=== PATIENT | female | born 1990 | race Caucasian/White ===

== ENCOUNTER 2017-11-19 16:22 | Inpatient (IN) | payer OTHER ==
[2017-11-19] MEDS ORDERED: XYLOCAINE 2% INFILTRATI ONE ×2 (18:20→21:42)
[2017-11-19] MEDS ORDERED: STADOL IV PRN (18:20)
[2017-11-19] MEDS ORDERED: ZOFRAN IV PRN (18:20)
[2017-11-19] MEDS ORDERED: BRETHINE IVP PRN (18:20)
[2017-11-19] MEDS ORDERED: MINERAL OIL PO PRN (18:20)
[2017-11-19] MEDS ORDERED: ePHEDrine SULFATE IV PRN (18:20)
[2017-11-19] MEDS ORDERED: BRETHINE SUB-Q PRN (18:20)
--- NOTE | 2017-11-19 18:42 | History and Physical Report ---
History of Present Illness Date of examination: 11/19/17 Date of admission: 11/19/17 17:33 Chief complaint: Intense Labor Pains History of present illness: Early entry to care, uncomplicated course at [facility] with several missed appointments. Past History Past Medical History: no pertinent history Past Surgical History: no surgical history Family/Genetic History: diabetes (mother, father, brother), heart disease (MGM) , hypertension (mother and father), cancer (stomach CA) Social history: no significant social history, - Obstetrical History Expected Date of Delivery: 11/27/17 Actual Gestation: 38 Week(s) 6 Day(s) : 4 Para: 1 Hx # Term Pregnancies: 2 Spontaneous Abortions: 2 Number of Living Children: 1 #1 Infant Gender: Male year: 2[age][birth year] Birthweight: 2.495 kg Method of Delivery: Vaginal Gestational age at delivery: 39 Complications: none Medications and Allergies Allergies Allergy/AdvReac Type Severity Reaction Status Date / Time No Known Allergies Allergy Unverified 04/20/16 01:14 Home Medications Medication Instructions Recorded Confirmed Last Taken Type No Known Home Medications [No 11/19/17 11/19/17 Unknown History Reported Home Medications] Active Meds: Active Medications Butorphanol Tartrate (Stadol) 2 mg IV Q2H PRN PRN Reason: Pain , Severe (7-10) Ephedrine Sulfate (Ephedrine Sulfate) 10 mg IV Q2M PRN PRN Reason: Hypotension Lactated Ringer's (Lactated Ringers) 1,000 mls @ 125 mls/hr IV DIRECT ARMIDA Oxytocin/Sodium Chloride (Pitocin/Ns 20 Unit/1000ml Drip) 20 units in 1,000 mls @ 125 mls/hr IV DIRECT ARMIDA Oxytocin/Sodium Chloride (Pitocin/Ns 30 Unit/500ml) 30 units in 500 mls @ 2 mls /hr IV TITR ARMIDA; Protocol Mineral Oil (Mineral Oil) 30 ml PO QHS PRN PRN Reason: Constipation Ondansetron HCl (Zofran) 4 mg IV Q8H PRN PRN Reason: Nausea And Vomiting Terbutaline Sulfate (Brethine) 0.25 mg SUB-Q ONCE PRN PRN Reason: Hyperstimulation/Hypertonicity Terbutaline Sulfate (Brethine) 0.25 mg IVP ONCE PRN PRN Reason: Hyperstimulation/Hypertonicity Review of Systems All systems: negative - Vital Signs Vital signs: Vital Signs Pulse BP 67 128/77 11/19/17 16:49 11/19/17 16:49 Temp Pulse Resp BP Pulse Ox 73 118/78 97 11/19/17 18:08 11/19/17 17:20 11/19/17 18:08 - Physical Exam Breasts: Positive: normal Cardiovascular: Regular rate Lungs: Positive: Clear to auscultation, Normal air movement Abdomen: Positive: normal appearance, soft, normal bowel sounds Genitourinary (Female): Positive: normal external genitalia, normal perenium Vagina: Positive: normal moisture Uterus: Positive: enlarged Anus/Rectum: Positive: normal perianal skin Extremities: Positive: normal - Obstetrical FHR: category 1 Uterine Contraction Monitor Mode: Internal Cervical Dilatation: 4 (Copious Amount of Brown, particulate Meconium stained fluids upon AROM at 1828) Cervical Effacement Percentage: 70 station: -2 Uterine Contraction Pattern: Irregular Uterine Tone Measurement Phase: Resting Uterine Contraction Intensity: Moderate Results All other labs normal. Assessment and Plan A: IUP @ 38 6/7 Weeks Category I Tracing Active Labor Meconium Stained Fluids GBS Negative P: Admit to L&D per Routine Orders Pitocin Augmentation AROM IUPC Placed
[2017-11-19] MEDS ORDERED: LACTATED RINGERS 1,000 ML IV SCH (19:00)
[2017-11-19] MEDS ORDERED: PITOCin/NS 30 UNIT/500ML 30 UNITS/500 ML BAG IV SCH (19:00)
[2017-11-19] MEDS ORDERED: PITOCin/NS 20 UNIT/1000ML DRIP 20 UNITS/1,000 ML BAG IV SCH (19:00)
[2017-11-19 19:19] LABS: Hematocrit 35.8 % (30.3-42.9); Hemoglobin 12.1 gm/dl (10.1-14.3); Mean Corpuscular HGB Conc 34 % (30-34); Mean Corpuscular Hemoglobin 32 pg (28-32); Mean Corpuscular Volume 94 fl (79-97); Platelet Count 226 K/mm3 (140-440); Red Blood Count 3.81 M/mm3 (3.65-5.03); Red Cell Distribution Width 15.1 % (13.2-15.2)
[2017-11-19] MEDS ORDERED: TUCKS PAD TP PRN (22:02)
[2017-11-19] MEDS ORDERED: LANSINOH TP PRN (22:02)
[2017-11-19] MEDS ORDERED: NORCO 5/325 PO PRN (22:02)
[2017-11-19] MEDS ORDERED: BENADRYL PO PRN (22:02)
--- NOTE | 2017-11-19 22:11 | Procedure Note ---
OB Delivery Note - Delivery Date of Delivery: 11/19/17 Surgeon: SANTHOSH KEMP Estimated blood loss: 300cc - Vaginal Delivery presentation: vertex Delivery position: OA Intrapartum events: meconium Delivery induction: none Delivery augmentation: rupture of membranes, pitocin Delivery monitor: external FHT, internal uterine Route of delivery: Delivery placenta: spontaneous Delivery cord: 3 umbilical vessels Episiotomy: none Delivery laceration: 1st degree Delivery repair: vicryl Anesthesia: local Delivery comments: of a live 8'6 female infant over a 1st perineal laceration under IV pain control with Apgars of 8 and 9 at 2141 on 11/19/2017. Cord double clamped and cut by BUZZ Kemp, not stimulated and passed directly to awaiting NICU/ RESP team due to meconium stained fluids. Spontaneous delivery of placenta complete and intact with Purcell side presenting at 2144. Fundus is firm and midline located 4 below the U. Lochia is scant. Cord blood collected; Placenta discarded. - A at 1 minute: 8 at 5 minutes: 9 Infant Gender: Female (8'6)
[2017-11-19] MEDS ORDERED: SODIUM CHLORIDE FLUSH SYRINGE 10 ML IV NR (23:00)
[2017-11-20] MEDS: MOTRIN PO SCH ×5 (01:20→23:22)
[2017-11-20] MEDS ORDERED: BOOSTRIX IM ONE (06:00)
--- NOTE | 2017-11-20 08:53 | Progress Note ---
Assessment and Plan A: PP Day #1 Stable P: Follow Routine Orders Depo Provera prior to discharge d/C Home today per patient request RTO in 6 weeks Subjective - Subjective Date of service: 11/20/17 Interval history: Early entry to care, uncomplicated course at [facility] with several missed appointments. Patient reports: appetite normal, voiding normally, pain well controlled, flatus , ambulating normally : doing well Objective - Vital Signs Latest vital signs: Vital Signs Temp Pulse Resp BP BP Pulse Ox 11/20/17 04:00 98.6 F 73 18 117/67 11/19/17 23:45 98.7 F 74 16 119/69 11/19/17 23:23 76 124/89 11/19/17 23:22 83 98 11/19/17 22:50 83 123/61 11/19/17 22:48 76 120/69 11/19/17 22:21 90 116/62 11/19/17 22:20 90 97 11/19/17 22:15 97 H 97 11/19/17 22:10 91 H 97 11/19/17 22:05 100 H 96 11/19/17 22:02 99 H 120/58 11/19/17 22:00 98.7 F 107 H 20 96 11/19/17 21:55 103 H 96 18 21:51 102 H 94 18 21:50 95 H 95 18 21:45 146 H 98 18 21:40 115 H 99 18 21:37 91 H 92 18 21:35 102 H 98 18 21:32 80 137/74 18 21:31 82 93 18 21:30 74 95 18 21:25 83 95 18 21:20 99 H 98 18 21:15 86 97 18 21:14 94 H 85 18 21:10 92 H 97 18 21:05 91 H 99 18 21:03 81 137/86 18 21:00 79 99 18 20:54 74 97 18 20:49 69 99 18 20:44 93 H 97 07/18/18 20:39 99 H 98 18/18 20:34 83 98 18/18 20:32 79 132/73 18/18 20:29 79 98 18/18 20:24 77 98 18/18 20:19 80 98 18/18 20:14 75 98 18/18 20:09 89 98 18/18 20:04 78 99 18/18 20:03 75 141/77 18/18 19:59 86 99 18/18 19:54 78 98 18/18 19:49 64 99 18/18 19:44 84 98 18/18 19:39 74 99 18/18 19:34 75 98 18/18 19:32 73 129/79 18/18 19:29 72 98 18/18 19:24 77 98 18/18 19:19 81 98 18/18 19:14 72 98 1818 19:09 72 97 1818 19:04 93 H 99 1818 19:02 64 129/73 18/18 18:59 77 99 18/18 18:57 98.9 F 75 14 129/73 99 1818 18:54 68 98 1818 18:08 73 97 18/18 18:03 72 97 18/18 17:58 66 97 18/18 17:53 66 97 18/18 17:20 80 118/78 18/18 16:49 67 128/77 Intake and Output 1818 /19/18 /19/18 22:59 06:59 14:59 Intake Total 5.4 300 Output Total 800 Balance 5.4 -500 Intake: IV 5.4 PITOCin/NS 30 UNIT/500ML 5.4 30 units In 500 ml @ 2 mls/hr IV TITR ARMIDA Rx#: [id number] Intake, Free Water 300 Output: Urine 800 Void 800 Other: Total, Output Amount 800 # Voids Void 1 Weight 92.986 kg Estimated Blood Loss 300 - Exam Breasts: Present: normal Cardiovascular: Present: Regular rate Lungs: Present: Clear to auscultation, Normal air movement Abdomen: Present: normal appearance, soft, normal bowel sounds Uterus: Present: normal, firm, fundal height below umbilicus Extremities: Present: normal
--- NOTE | 2017-11-20 08:55 | Discharge Summary ---
Providers - Providers Date of Admission: 11/19/17 17:33 Date of discharge: 11/20/17 Attending physician: MARTINA KRISHNA MD Primary care physician: MARTINA KRISHNA MD Hospitalization Reason for admission: active labor Delivery: Episiotomy: none Laceration: 1st degree Other procedures: none complications: none Discharge diagnosis: IUP at term delivered [place] baby: female Condition at discharge: Good Disposition: DC-01 TO HOME OR SELFCARE Plan - Provider Discharge Summary Activity: routine, no sex for 6 weeks, no heavy lifting 4 weeks, no strenuous exercise Diet: routine Instructions: routine Additional instructions: [] Smoking cessation referral if applicable(refer to patient education folder for contact #) [] Refer to [facility]'s [facility] Booklet Call your doctor immediately for: * Fever > 100.5 * Heavy vaginal bleeding ( >1 pad per hour) * Severe persistent headache * Shortness of breath * Reddened, hot, painful area to leg or breast * Drainage or odor from incision. * Keep incision clean and dry at all times and follow doctor's instructions regarding bathing/showering - Follow up plan Follow up: MARTINA KRISHNA MD [Primary Care Provider] - 6 Weeks
[2017-11-20] MEDS ORDERED: DEPO-PROVERA (CONTRACEPTION) IM NR (09:00)
[2017-11-20] MEDS ORDERED: PRENATAL VITAMIN PO SCH (10:00)
[2017-11-20 10:21] LABS: Hematocrit 31.6 % (30.3-42.9); Hemoglobin 10.6 gm/dl (10.1-14.3)
[2017-11-21] MEDS: MOTRIN PO SCH (05:26)
[2017-11-21 09:48] VITALS: BP 107/46
== END 2017-11-21 12:05 | disposition home or self-care (01) | DRG 775 ==
LOC: TRG 16:22 → LD 17:33 → OB 11-20 00:03
PROVIDERS: ADMIT Obstetrics & Gynecology; ATTEND Obstetrics & Gynecology
PROC: 10E0XZZ Delivery of Products of Conception, External Approach (ICD-10-PCS; principal; 2017-11-19)
PROC: 10907ZC Drainage of Amniotic Fluid, Therapeutic from Products of Conception, Via Natural or Artificial Opening (ICD-10-PCS; 2017-11-19)
PROC: 10H07YZ Insertion of Other Device into Products of Conception, Via Natural or Artificial Opening (ICD-10-PCS; 2017-11-19)
PROC: 0HQ9XZZ Repair Perineum Skin, External Approach (ICD-10-PCS; 2017-11-19)
DX: O77.0 Labor and delivery complicated by meconium in amniotic fluid (principal); O70.0 First degree perineal laceration during delivery; Z3A.38 38 weeks gestation of pregnancy; Z37.0 Single live birth; Z82.49 Family history of ischemic heart disease and other diseases of the circulatory system; Z83.3 Family history of diabetes mellitus; Z80.8 Family history of malignant neoplasm of other organs or systems
CPT/HCPCS: 36415; 85014; 85018; 85027; 86592; 86850; 86900; 86901; 90471; 90715; 99211; G0463; J0595; J2590; J7120

== ENCOUNTER 2021-02-12 16:18 | Inpatient (IN) | payer MEDICAID ==
[2021-02-12] MEDS ORDERED: miSOPROStol 200 MCG TAB PR PRN (17:35)
[2021-02-12] MEDS ORDERED: AMPICILLIN/NS 2 GM/100 ML 2 GM/100 ML BAG IV ONE (17:35)
[2021-02-12] MEDS ORDERED: ePHEDrine SULFATE 50 MG/1 ML INJ IV PRN ×2 (17:35→17:40)
[2021-02-12] MEDS ORDERED: MINERAL OIL 30 ML ORAL LIQD PO PRN ×2 (17:35→17:40)
[2021-02-12] MEDS ORDERED: LOPERAMIDE 2 MG CAP PO PRN (17:35)
[2021-02-12] MEDS ORDERED: NALOXONE 0.4 MG/1 ML INJ IV PRN (17:35)
[2021-02-12] MEDS ORDERED: BUTORPHANOL 2 MG/1 ML INJ IV PRN (17:35)
[2021-02-12] MEDS ORDERED: METHYLERGONOVINE MALEATE 0.2 MG/ML VIAL IM PRN ×2 (17:35→17:40)
[2021-02-12] MEDS ORDERED: OXYTOCIN 10 UNIT/1 ML INJ IM PRN ×2 (17:35→17:40)
[2021-02-12] MEDS ORDERED: CARBOPROST TROMETHAMINE 250 MCG/1 ML INJ IM PRN ×2 (17:35→17:40)
[2021-02-12] MEDS ORDERED: DINOPROSTONE 10 MG VAG SUPP VG ONE (17:35)
[2021-02-12] MEDS ORDERED: TERBUTALINE 1 MG/1 ML INJ SUB-Q PRN ×2 (17:35→17:40)
[2021-02-12] MEDS ORDERED: LIDOCAINE (2%) 20 MG/1 ML VIAL 20 ML MDV INFILTRATI ONE ×2 (17:35→17:40)
[2021-02-12] MEDS ORDERED: ONDANSETRON 4 MG/2 ML INJ IV PRN (17:35)
--- NOTE | 2021-02-12 17:50 | History and Physical Report ---
History of Present Illness Date of examination: 02/12/21 Date of admission: 02/12/2021 Chief complaint: Presents for scheduled induction of labor due to Cholestasis of History of present illness: Early entry to care at [facility], course complicated by a abnormal 1hour GTT followed by a normal 3 hour GTT. Also complicated by Cholestasis of co-manged with APA, never took Ursidlol as recommended. 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) Past Surgical History: no surgical history Family/Genetic History: diabetes (Parents and Brother), hypertension (Parents) Social history: no significant social history, - Obstetrical History Expected Date of Delivery: 02/26/21 Actual Gestation: 38 Week(s) 0 Day(s) : 5 Para: 2 Hx # Term Pregnancies: 2 Spontaneous Abortions: 2 Number of Living Children: 2 Medications and Allergies Allergies Allergy/AdvReac Type Severity Reaction Status Date / Time No Known Allergies Allergy Verified 02/05/21 21:26 Home Medications Medication Instructions Recorded Confirmed Last Taken Type Vit No.129/Iron/Folic 1 tab PO DAILY 02/05/21 02/05/21 1 Day Ago History [ One Daily Tablet] ~02/04/21 1 tab Active Meds: Active Medications Butorphanol Tartrate (Butorphanol 2 Mg/1 Ml Inj) 2 mg IV Q2H PRN PRN Reason: Pain , Severe (7-10) Carboprost Tromethamine (Carboprost Tromethamine 250 Mcg/1 Ml Inj) 250 mcg IM ONCE PRN PRN Reason: Uterine Bleeding Dinoprostone (Dinoprostone 10 Mg Vag Supp) 10 mg VG ONCE ONE Stop: 02/12/21 17:36 Ephedrine Sulfate (Ephedrine Sulfate 50 Mg/1 Ml Inj) 10 mg IV Q2M PRN PRN Reason: Hypotension Oxytocin/Sodium Chloride (Pitocin/Ns 30 Unit/500ml) 30 units in 500 mls @ 2 mls/hr IV TITR ARMIDA; Protocol Lactated Ringer's (Lactated Ringers) 1,000 mls @ 125 mls/hr IV DIRECT ARMIDA Oxytocin/Sodium Chloride (Pitocin/Ns 30 Unit/500ml) 30 units in 500 mls @ 40 mls/hr IV TITR ARMIDA; Protocol Ampicillin Sodium (Ampicillin/Ns 2 Gm/100 Ml) 2 gm in 100 mls @ 100 mls/hr IV ONCE ONE; Protocol Stop: 02/12/21 18:34 Ampicillin Sodium (Ampicillin/Ns 1 Gm/50 Ml) 1 gm in 50 mls @ 100 mls/hr IV Q4H ARMIDA; Protocol Lidocaine (Lidocaine (2%) 20 Mg/1 Ml Vial 20 Ml Mdv) 20 ml INFILTRATI ONCE ONE Stop: 02/12/21 17:36 Lidocaine (Lidocaine (2%) 20 Mg/1 Ml Vial 20 Ml Mdv) 20 ml INFILTRATI ONCE ONE Stop: 02/12/21 17:41 Loperamide HCl (Loperamide 2 Mg Cap) 2 mg PO ONCE PRN PRN Reason: give with Hemabate Methylergonovine Maleate (Methylergonovine Maleate 0.2 Mg/Ml Vial) 0.2 mg IM ONCE PRN PRN Reason: Uterine Bleeding Mineral Oil (Mineral Oil 30 Ml Oral Liqd) 30 ml PO QHS PRN PRN Reason: Constipation Mineral Oil (Mineral Oil 30 Ml Oral Liqd) 30 ml PO QHS PRN PRN Reason: Constipation Misoprostol (Misoprostol 200 Mcg Tab) [address] ONCE PRN PRN Reason: Uterine Bleeding Naloxone HCl (Naloxone 0.4 Mg/1 Ml Inj) 0.1 mg IV Q2MIN PRN PRN Reason: Res Rate </= 8 or 02 SAT < 92% Ondansetron HCl (Ondansetron 4 Mg/2 Ml Inj) 4 mg IV Q8H PRN PRN Reason: Nausea And Vomiting Oxytocin (Oxytocin 10 Unit/1 Ml Inj) 10 unit IM ONCE PRN PRN Reason: Uterine Bleeding Terbutaline Sulfate (Terbutaline 1 Mg/1 Ml Inj) 0.25 mg SUB-Q ONCE PRN PRN Reason: Hyperstimulation/Hypertonicity Terbutaline Sulfate (Terbutaline 1 Mg/1 Ml Inj) 0.25 mg SUB-Q ONCE PRN PRN Reason: Hyperstimulation/Hypertonicity Review of Systems All systems: negative - Vital Signs Vital signs: Vital Signs Pulse BP Pulse Ox 71 150/85 97 02/12/21 16:52 02/12/21 16:52 02/12/21 16:52 Temp Pulse Resp BP Pulse Ox 98.4 F 64 16 140/83 99 02/12/21 17:28 02/12/21 17:42 02/12/21 17:28 02/12/21 17:34 02/12/21 17:42 - Physical Exam Breasts: Positive: normal Cardiovascular: Regular rate Lungs: Positive: Clear to auscultation, Normal air movement Abdomen: Positive: normal appearance, soft, normal bowel sounds Genitourinary (Female): Positive: normal external genitalia, normal perenium Vagina: Positive: normal moisture Uterus: Positive: enlarged Anus/Rectum: Positive: normal perianal skin Extremities: Positive: normal - Obstetrical FHR: category 1 Uterine Contraction Monitor Mode: External Cervical Dilatation: 1 Cervical Effacement Percentage: 20 station: -4 Uterine Contraction Pattern: Irregular Uterine Tone Measurement Phase: Resting Uterine Contraction Intensity: Mild Results All other labs normal. Assessment and Plan A: IUP @ 38 Weeks Category I Tracing Cholestasis of GBS Unknown P: Admit to L&D per Routine Orders Cervidil Induction GBS Prophylaxis
[2021-02-12] MEDS ORDERED: OXYTOCIN DRIP 30 UNITS/500 ML BAG IV SCH ×4 (18:00)
[2021-02-12 19:35] LABS: Hematocrit 35.6 % (30.3-42.9); Hemoglobin 12.2 gm/dl (10.1-14.3); Mean Corpuscular HGB Conc 34 % (30-34); Mean Corpuscular Volume 93 fl (79-97); Platelet Count 226 K/mm3 (140-440); Red Blood Count 3.84 M/mm3 (3.65-5.03); Red Cell Distribution Width 14.2 % (13.2-15.2)
[2021-02-12 19:39] LABS: Alanine Aminotransferase 534 units/L (7-56); Uric Acid 5.6 mg/dL (3.5-7.6)
[2021-02-12] MEDS ORDERED: AMPICILLIN/NS 1 GM/50 ML 1 GM/50 ML BAG IV SCH (22:00)
[2021-02-13] MEDS: LACTATED RINGERS 1,000 ML IV SCH ×2 (10:08→18:16)
--- NOTE | 2021-02-13 13:19 | Event Note ---
Date: 02/13/21 pt evalutated and FHR category I; pelvic /-2 and pt declines epidural and having painful ctx. Nurse told she may have IV pain med. Will AROM with descent and nurse told to increase pitocin per protocol. Pt has already had cervidil, allowed to have shower and breakfast and we expect . FOB to bedside and supportive with pt speaking only Afghan. All questions encouraged and answered.
[2021-02-13] MEDS ORDERED: BICITRA ORAL LIQD 30ML PO ONE (17:20)
--- NOTE | 2021-02-13 19:53 | Event Note ---
Date: 02/13/21 pt evaluated and FHR category I remains. Pelvic 3-4/70/-1; AROM copious amount of clear fluid. Pt declines epidural or pain med at this time. IUPC placed with pitocin at 14mu/min and essentially no cervical change since this morning. External monitor recording fetus well.
[2021-02-13] MEDS ORDERED: NalbUPHINE 10 MG/1 ML INJ IV PRN (21:23)
[2021-02-13] MEDS ORDERED: diphenhydrAMINE 50 MG/ML VIAL IV PRN (21:23)
[2021-02-13] MEDS ORDERED: LACTATED RINGERS 250 ML IV SOLN IV ONE (21:23)
[2021-02-13] MEDS ORDERED: NALOXONE 2 MG/2 ML INJ IV PRN (21:23)
[2021-02-13] MEDS ORDERED: ONDANSETRON 4 MG/2 ML INJ IV PRN (21:23)
[2021-02-13] MEDS ORDERED: ePHEDrine SULFATE 50 MG/1 ML INJ IV PRN (21:23)
--- NOTE | 2021-02-13 21:25 | Progress Note ---
Labor Epidural - Labor Epidural Start Time: 21:12 Stop Time: 21:20 Performed by:: RAISSA ONEAL Procedure: Patient is requesting epidural for labor and pain. H&P, labs were reviewed. Patient IDed, H&P reviewed, all questions and concerns were answered, and consent was signed. Timeout was performed at bedside. Patient in sitting position. Sterile prep and drape was performed. 3ml of 1% lidocaine skin wheal at L[3]- L [4]. 18-gauge Tuohy epidural needle was advanced to loss of resistance with air technique 6cm. Negative CSF negative blood. Epidural catheter advanced to [11] centimeters. [negative] Aspiration [negative] test dose. Sterile dressing applied. Patient tolerated procedure.
--- NOTE | 2021-02-13 21:25 | Anesthesia Consultation ---
Anesthesia Consult and Med Hx Date of service: 02/13/21 - Airway Anesthetic Teeth Evaluation: Good ROM Head & Neck: Adequate Mental/Hyoid Distance: Adequate Mallampati Class: Class II Intubation Access Assessment: Probably Good - Pulmonary Exam CTA: Yes - Cardiac Exam Cardiac Exam: RRR - Pre-Operative Health Status ASA Pre-Surgery Classification: ASA2 Proposed Anesthetic Plan: Epidural - Pulmonary Hx Smoking: No Hx Asthma: No COPD: No Hx Pneumonia: No Hx Sleep Apnea: No - Cardiovascular System Hx Hypertension: No Hx Heart Attack/AMI: No Hx Angina: No - Central Nervous System Hx Seizures: No Hx Psychiatric Problems: No - Gastrointestinal Hx Gastroesophageal Reflux Disease: No - Endocrine Hx Renal Disease: No Hx End Stage Renal Disease: No Hx Liver Disease: No Hx Insulin Dependent Diabetes: No Hx Non-Insulin Dependent Diabetes: No Hx Hypothyroidism: No Hx Hyperthyroidism: No - Hematic Hx Anemia: No Hx Sickle Cell Disease: No - Other Systems Hx Alcohol Use: No
[2021-02-13] MEDS ORDERED: fentaNYL-BUPIV 2 MCG/ML-0.125% 200 MCG/100 ML BAG EPIDURAL SCH (22:00)
--- NOTE | 2021-02-13 22:02 | Procedure Note ---
OB Delivery Note - Delivery Date of Delivery: 02/13/21 Surgeon: AGUILA MONTGOMERY Estimated blood loss: other (150cc) - Vaginal Delivery presentation: vertex Delivery position: OA Delivery induction: oxytocin Delivery augmentation: pitocin Delivery monitor: external FHT, external uterine, internal uterine Route of delivery: Delivery placenta: spontaneous Delivery cord: nuchal cord Episiotomy: none Delivery laceration: 1st degree (perineal laceration) Delivery repair: chromic Anesthesia: epidural Delivery comments: SAVD of viable male , vertex; nuchal cord x1 reduced without difficulty. Left arm flexed followed head and pt sustained 1st degree perineal laceration and same repaired with 2-0 chromic subcutaneously. Epidural in progress with good effect. Placenta delivered complete with 3v cord. Bimanual exam with uterus firm. Mom and baby stable. Baby moving both arms equally with good tone. - Infant A at 1 minute: 8 at 5 minutes: 9 Infant Gender: Male (clear amniotic fluid. EFW 3250g)
[2021-02-14] MEDS ORDERED: MAGNESIUM HYDROXIDE (MOM) ORAL LIQD UDC PO PRN (02:00)
[2021-02-14] MEDS ORDERED: WITCH HAZEL/ GLYCERIN PAD TP PRN (02:00)
[2021-02-14] MEDS ORDERED: PROMETHAZINE 25 MG TAB PO PRN (02:00)
[2021-02-14] MEDS ORDERED: ONDANSETRON 4 MG/2 ML INJ IV PRN (02:00)
[2021-02-14] MEDS ORDERED: BENZOCAINE/MENTHOL 20/0.5% TOP SPRAY 56 GM TP PRN (02:00)
[2021-02-14] MEDS ORDERED: PROMETHAZINE 25 MG RECT SUPP PR PRN (02:00)
[2021-02-14] MEDS ORDERED: ACETAMINOPHEN 325 MG TAB PO PRN (02:00)
[2021-02-14] MEDS ORDERED: oxyCODONE /ACETAMINOPHEN 5-325MG TAB PO PRN (02:00)
[2021-02-14] MEDS ORDERED: diphenhydrAMINE 25 MG CAP PO PRN (02:00)
[2021-02-14] MEDS ORDERED: LANOLIN/ZINC/DIMETHICONE (LANSINOH) 7 GM TP PRN (02:00)
[2021-02-14] MEDS: IBUPROFEN 600 MG TAB PO SCH ×2 (03:02→16:51)
--- NOTE | 2021-02-14 11:13 | Progress Note ---
Assessment and Plan A: PP Day #1 Cholestasis of Elevated Liver Enyemes (AST/ALT: 327/534) P: Follow Routine Orders Draw CMP Subjective - Subjective Date of service: 02/14/21 Interval history: Early entry to care at [facility], course complicated by a abnormal 1hour GTT followed by a normal 3 hour GTT. Also complicated by Cholestasis of co-manged with APA, never took Ursidlol as recommended. Patient reports: appetite normal, voiding normally, pain well controlled, ambulating normally : doing well Objective - Vital Signs Latest vital signs: Vital Signs Temp Pulse Resp BP BP Pulse Ox Pulse Ox 02/14/21 07:57 97.6 F 73 18 134/67 95 02/14/21 04:11 97.9 F 65 18 120/66 94 02/14/21 03:02 18 02/14/21 00:06 98.2 F 64 18 108/55 97 02/14/21 00:00 97 02/13/21 23:31 83 98 02/13/21 23:26 93 H 99 02/13/21 23:21 73 99 02/13/21 23:16 69 99 02/13/21 23:11 71 99 02/13/21 23:07 89 133/76 02/13/21 23:06 87 99 02/13/21 23:01 71 99 02/13/21 22:56 78 99 02/13/21 22:51 79 99 02/13/21 22:46 83 98 02/13/21 22:41 90 99 02/13/21 22:36 98 H 99 02/13/21 22:31 82 98 02/13/21 22:26 77 99 02/13/21 22:21 79 98 02/13/21 22:18 97.7 F 02/13/21 22:16 87 98 02/13/21 22:11 103 H 98 02/13/21 22:06 86 98 02/13/21 22:02 77 103/56 02/13/21 22:01 77 97 02/13/21 21:59 85 112/56 02/13/21 21:56 83 98 02/13/21 21:55 77 103/54 02/13/21 21:52 83 108/53 02/13/21 21:51 72 97 02/13/21 21:50 78 111/55 10/12/21 21:47 89 131/61 02/13/21 21:46 89 99 02/13/21 21:41 112 H 98 02/13/21 21:40 114 H 130/79 02/13/21 21:37 105 H 131/83 02/13/21 21:36 104 H 98 02/13/21 21:34 107 H 137/89 02/13/21 21:31 99 H 127/77 98 02/13/21 21:28 86 125/68 02/13/21 21:26 90 98 02/13/21 21:25 89 128/70 02/13/21 21:22 81 124/66 02/13/21 21:21 107 H 99 02/13/21 21:19 90 129/62 02/13/21 21:16 84 139/68 99 02/13/21 21:11 89 99 02/13/21 21:06 125 H 98 02/13/21 21:05 110 H 143/97 02/13/21 21:00 94 H 98 02/13/21 20:55 102 H 99 02/13/21 20:50 87 127/88 99 02/13/21 20:45 91 H 99 02/13/21 20:40 78 99 02/13/21 20:35 84 99 02/13/21 20:33 83 144/80 02/13/21 20:30 79 99 02/13/21 20:25 63 96 02/13/21 20:20 68 99 02/13/21 20:19 68 140/70 02/13/21 20:15 73 99 02/13/21 20:12 99 02/13/21 20:11 99.2 F 20 99 02/13/21 20:10 74 99 02/13/21 20:05 66 99 02/13/21 20:03 71 137/78 02/13/21 20:00 71 99 02/13/21 19:55 56 L 99 02/13/21 19:50 62 128/77 99 02/13/21 19:33 83 149/83 02/13/21 19:30 56 L 98 02/13/21 19:25 60 98 02/13/21 19:20 59 L 98 02/13/21 19:18 55 L 141/83 02/13/21 19:15 58 L 98 10/12/21 19:10 61 98 02/13/21 19:05 59 L 99 02/13/21 19:04 61 148/85 02/13/21 19:00 59 L 99 02/13/21 18:55 54 L 98 02/13/21 18:50 56 L 98 02/13/21 18:49 57 L 135/81 02/13/21 18:45 62 98 02/13/21 18:40 63 98 02/13/21 18:35 65 98 02/13/21 18:33 61 133/82 02/13/21 18:30 60 99 02/13/21 18:25 60 98 02/13/21 18:20 64 99 02/13/21 18:18 63 126/76 02/13/21 18:15 60 99 02/13/21 18:10 81 99 02/13/21 18:05 62 128/73 99 02/13/21 18:00 72 98 02/13/21 17:55 66 98 02/13/21 17:50 63 131/80 98 02/13/21 17:45 65 99 02/13/21 17:40 71 98 02/13/21 17:35 63 127/77 98 02/13/21 17:30 65 98 02/13/21 17:25 64 98 02/13/21 17:20 64 99 02/13/21 17:19 59 L 131/75 02/13/21 17:15 61 98 02/13/21 17:10 60 98 02/13/21 17:05 65 98 02/13/21 17:03 66 115/73 02/13/21 17:00 68 98 02/13/21 16:55 63 98 02/13/21 16:51 62 121/75 02/13/21 16:50 66 98 02/13/21 16:23 65 99 02/13/21 16:18 66 126/75 98 02/13/21 16:13 65 99 02/13/21 16:08 59 L 98 02/13/21 16:04 56 L 129/70 02/13/21 16:03 59 L 98 02/13/21 15:58 58 L 98 02/13/21 15:53 58 L 98 02/13/21 15:48 57 L 124/67 98 02/13/21 15:43 64 98 02/13/21 15:38 64 98 02/13/21 15:33 60 121/64 98 02/13/21 15:28 65 98 02/13/21 15:23 76 97 02/13/21 15:20 72 132/63 02/13/21 15:18 73 99 02/13/21 15:13 60 98 02/13/21 15:08 60 99 02/13/21 15:04 61 142/75 02/13/21 15:03 66 98 02/13/21 15:00 99.6 F 02/13/21 14:58 62 98 02/13/21 14:53 69 98 02/13/21 14:50 63 134/81 02/13/21 14:48 66 97 02/13/21 14:43 64 98 02/13/21 14:38 61 98 02/13/21 14:34 60 135/81 02/13/21 14:33 58 L 98 02/13/21 14:28 65 97 02/13/21 14:23 64 98 02/13/21 14:18 64 129/79 98 02/13/21 14:13 62 97 02/13/21 14:08 62 98 02/13/21 14:04 60 139/82 02/13/21 14:03 61 98 02/13/21 13:58 62 98 02/13/21 13:53 75 99 02/13/21 13:48 66 116/66 99 02/13/21 13:43 68 99 02/13/21 13:38 65 98 02/13/21 13:33 67 117/70 98 02/13/21 13:28 66 99 02/13/21 13:23 90 99 02/13/21 13:18 75 121/73 99 02/13/21 13:13 71 98 02/13/21 13:08 72 99 02/13/21 13:03 77 122/71 99 02/13/21 12:58 89 98 02/13/21 12:53 64 98 02/13/21 12:49 68 120/67 02/13/21 12:48 77 99 02/13/21 12:43 74 97 02/13/21 12:38 68 98 02/13/21 12:34 67 108/62 02/13/21 12:33 66 98 02/13/21 12:28 63 98 02/13/21 12:23 65 98 02/13/21 12:19 68 111/65 02/13/21 12:18 70 98 02/13/21 12:13 64 98 02/13/21 12:08 66 98 02/13/21 12:03 65 116/65 99 02/13/21 11:58 63 100 02/13/21 11:53 57 L 98 02/13/21 11:49 56 L 128/74 02/13/21 11:48 55 L 98 02/13/21 11:43 59 L 98 02/13/21 11:38 60 98 02/13/21 11:34 60 133/73 02/13/21 11:33 58 L 99 02/13/21 11:28 63 98 02/13/21 11:23 70 99 02/13/21 11:18 63 118/73 98 02/13/21 11:13 65 98 02/13/21 11:08 63 98 Intake and Output 02/13/21 02/14/21 02/14/21 22:59 06:59 14:59 Intake Total 1060.4 Balance 1060.4 Intake: IV 1060.4 Lactated Ringers 1,000 ml 1000 @ 125 mls/hr IV DIRECT ARMIDA Rx#:[id number] PITOCin/NS 30 UNIT/500ML 60.4 30 units In 500 ml @ 2 mls/hr IV TITR ARMIDA Rx#: [id number] Other: # Voids Void 1 1 Estimated Blood Loss 150 - Exam Breasts: Present: normal Cardiovascular: Present: Regular rate Lungs: Present: Clear to auscultation, Normal air movement Abdomen: Present: normal appearance, soft, normal bowel sounds Vulva: right: pigmented lesion Uterus: Present: normal, firm, fundal height above umbilicus Extremities: Present: normal
[2021-02-14 11:14] LABS: Hematocrit 33.4 % (30.3-42.9); Hemoglobin 11.3 gm/dl (10.1-14.3)
--- NOTE | 2021-02-14 12:30 | Post Anesthesia Evaluation ---
- Post Anesthesia Evaluation Patient Participated: Yes Airway Patent: Yes Stable Respiratory Function: Yes Nausea/Vomiting: No Temp > 96.8F: Yes Pain Manageable: Yes Adequeate Hydration: Yes Anesthesia Complications: No Block Receding Appropriately: Yes Patient on Ventilator: No
[2021-02-14 16:19] LABS: Alanine Aminotransferase 653 units/L (7-56); Albumin 2.8 g/dL (3.9-5); Blood Urea Nitrogen 7 mg/dL (7-17); Calcium 8.7 mg/dL (8.4-10.2); Hemolysis Index 0
[2021-02-14 16:25] LABS: BUN/Creatinine Ratio 12
[2021-02-14] MEDS: PRENATAL VIT27-FE FUMARATE-FOLIC ACID VIT TAB PO SCH (16:52)
[2021-02-15] MEDS: IBUPROFEN 600 MG TAB PO SCH ×4 (02:33→23:31)
[2021-02-15] MEDS: PRENATAL VIT27-FE FUMARATE-FOLIC ACID VIT TAB PO SCH (09:18)
--- NOTE | 2021-02-15 10:37 | Progress Note ---
Assessment and Plan A:S/P Cholestasis with elevated LFTs Elevated FSBS (140) P: Continue routine pp care Liver US Hospitalist consult Repeat FSBS and CMP POC agrees with plan Subjective - Subjective Date of service: 02/15/21 Principal diagnosis: s/p with cholestasis Patient reports: appetite normal, voiding normally, pain well controlled, flatus, ambulating normally : doing well, bottle feeding Objective - Vital Signs Latest vital signs: Vital Signs Temp Pulse Resp BP Pulse Ox Pulse Ox 02/15/21 09:18 16 02/15/21 07:56 97.9 F 67 20 116/71 96 02/15/21 07:00 100 02/14/21 23:42 98.1 F 72 18 114/67 96 02/14/21 20:58 97 02/14/21 18:00 97 02/14/21 16:33 98.0 F 76 18 132/68 96 02/14/21 16:00 97 Intake and Output 02/14/21 02/15/21 02/15/21 22:59 06:59 14:59 Intake Total 120 360 120 Balance 120 360 120 Intake: Oral 120 360 120 Other: Total, Intake Amount 120 120 120 # Voids Void 1 1 1 - Exam Breasts: Present: normal Abdomen: Present: normal appearance, soft, normal bowel sounds Vulva: both: normal Uterus: Present: normal, firm, fundal height below umbilicus Extremities: Present: normal Incision: Present: normal, intact - Labs Labs: Abnormal lab results 02/14/21 Range/Units 15:21 Sodium 136 L (137-145) mmol/L Carbon Dioxide 21 L (22-30) mmol/L Glucose 140 H (65-100) mg/dL AST 358 H (5-40) units/L ALT 653 H (7-56) units/L Alkaline Phosphatase 637 H (35-129) units/L Albumin 2.8 L (3.9-5) g/dL
--- NOTE | 2021-02-15 11:20 | Consultation ---
History of Present Illness - Reason for Consult Consult date: 02/15/21 Elevated Liver function tests Requesting physician: MARISELA AMOR JR - History of Present Illness 30 YO Female with Obesity S/P SAVD, HAV during childhood. Consult placed for elevated liver function tests. Patient seen and evaluated in her room. Patient denies fever, chills, chest pain, palpitation, skin rash, skin itching, trauma, change in stool size or caliber, or known ill contacts. No reported nursing events. Past History Past Medical History: other (See HPI) Past Surgical History: No surgical history, Other (Reviewed) Social history: no significant social history, Family history: no significant family history Medications and Allergies Allergies Allergy/AdvReac Type Severity Reaction Status Date / Time No Known Allergies Allergy Verified 02/05/21 21:26 Home Medications Medication Instructions Recorded Confirmed Last Taken Type Vit No.129/Iron/Folic 1 tab PO DAILY 02/05/21 02/05/21 02/10/21 History [ One Daily Tablet] 1 TAB Active Meds: Active Medications Acetaminophen (Acetaminophen 325 Mg Tab) 650 mg PO Q4H PRN PRN Reason: Pain MILD(1-3)/Fever >100.5/BALDWIN Benzocaine/Menthol (Benzocaine/Menthol 20/0.5% [place] 56 Gm) 1 spray TP PRN PRN PRN Reason: Episiotomy Pain Bisacodyl (Bisacodyl 10 Mg Rect Supp) 10 mg NV BID PRN PRN Reason: Constipation Carboprost Tromethamine (Carboprost Tromethamine 250 Mcg/1 Ml Inj) 250 mcg IM ONCE PRN PRN Reason: Uterine Bleeding Diphenhydramine HCl (Diphenhydramine 50 Mg/Ml Vial) 12.5 mg IV Q2H PRN PRN Reason: Itching Diphenhydramine HCl (Diphenhydramine 25 Mg Cap) 25 mg PO Q6H PRN PRN Reason: Itching Lactated Ringer's (Lactated Ringers) 1,000 mls @ 125 mls/hr IV DIRECT ARMIDA Last Admin: 02/13/21 18:16 Dose: 125 mls/hr Documented by: Oxytocin/Sodium Chloride (Pitocin/Ns 30 Unit/500ml) 30 units in 500 mls @ 2 mls/hr IV TITR ARMIDA; Protocol Last Titration: 02/13/21 18:35 Dose: 14 mls/hr, 14 mls/hr Documented by: Ibuprofen (Ibuprofen 600 Mg Tab) 600 mg PO Q6HR [facility] Last Admin: 02/15/21 09:18 Dose: 600 mg Documented by: Loperamide HCl (Loperamide 2 Mg Cap) 2 mg PO ONCE PRN PRN Reason: give with Hemabate Magnesium Hydroxide (Magnesium Hydroxide (Mom) Oral Liqd Udc) 30 ml PO HS PRN PRN Reason: Constipation Methylergonovine Maleate (Methylergonovine Maleate 0.2 Mg/Ml Vial) 0.2 mg IM ONCE PRN PRN Reason: Uterine Bleeding Mineral Oil (Mineral Oil 30 Ml Oral Liqd) 30 ml PO QHS PRN PRN Reason: Constipation Misoprostol (Misoprostol 200 Mcg Tab) 800 mcg NV ONCE PRN PRN Reason: Uterine Bleeding Multi-Ingredient Ointment (Lanolin/Zinc/Dimethicone (Lansinoh) 7 Gm) 1 applic TP PRN PRN PRN Reason: Sore Nipples Multivitamins/Iron/Calcium ( Ohg83-Mr Fumarate-Folic Acid Vit Tab) 1 each PO QDAY [facility] Last Admin: 02/15/21 09:18 Dose: 1 each Documented by: Ondansetron HCl (Ondansetron 4 Mg/2 Ml Inj) 4 mg IV Q8H PRN PRN Reason: Nausea And Vomiting Oxycodone/Acetaminophen (Oxycodone /Acetaminophen 5-325mg Tab) 1 tab PO Q6H PRN PRN Reason: Pain, Moderate (4-6) Promethazine HCl (Promethazine 25 Mg Rect Supp) 25 mg NV Q6H PRN PRN Reason: Nausea And Vomiting Promethazine HCl (Promethazine 25 Mg Tab) 25 mg PO Q6H PRN PRN Reason: Nausea And Vomiting Sodium Chloride (Sodium Chloride 0.9% 10 Ml Flush Syringe) 10 ml IV PRN PRN PRN Reason: LINE FLUSH Witch [place]/Glycerin (Witch [place]/ Glycerin Pad) 1 each TP PRN PRN PRN Reason: Hemorrhoid/cleansing/soothing Review of Systems Constitutional: no weight loss, no weight gain, no fever, no chills Ears, nose, mouth and throat: no ear pain, no ear discharge, no tinnitis, no decreased hearing, no nose pain, no nasal congestion Breasts: no change in shape, no swelling, no mass Cardiovascular: no chest pain, no palpitations, no edema, no syncope Respiratory: no cough, no cough with sputum, no excessive sputum, no shortness of breath Gastrointestinal: no abdominal pain, no constipation, no hematemesis, no coffee ground emesis, no BRBPR, no melena Genitourinary Female: no pelvic pain, no flank pain, no dysuria, no urinary frequency, no urgency Rectal: no pain, no incontinence, no bleeding Musculoskeletal: no neck stiffness, no neck pain, no shooting arm pain, no arm numbness/tingling Integumentary: no rash, no pruritis, no redness, no wounds, no jaundice, no boils Neurological: no head injury, no transient paralysis, no paralysis, no numbness, no tingling, no seizures, no tremors Psychiatric: no anxiety, no memory loss, no change in sleep habits, no hypersomnia, no change in libido, no disorientation Endocrine: no cold intolerance, no polyphagia, no excessive thirst, no polyuria, no excessive sweating Hematologic/Lymphatic: no easy bruising, no easy bleeding Allergic/Immunologic: no urticaria, no allergic rhinitis, no wheezing, no persistent infections Exam - Constitutional Vitals: Temp Pulse Resp BP Pulse Ox 97.9 F 67 16 116/71 96 02/15/21 07:56 02/15/21 07:56 02/15/21 09:18 02/15/21 07:56 02/15/21 07:56 General appearance: Present: no acute distress - EENT Eyes: Present: PERRL. Absent: scleral icterus ENT: hearing intact, clear oral mucosa - Neck Neck: Present: supple, normal ROM - Respiratory Respiratory effort: normal Respiratory: bilateral: CTA - Cardiovascular Heart Sounds: Present: S1 & S2. Absent: rub, click - Extremities Extremities: pulses symmetrical, No edema Peripheral Pulses: within normal limits - Abdominal General gastrointestinal: Present: soft, non-tender, non-distended, normal bowel sounds Female genitourinary: Present: normal - Integumentary Integumentary: Present: clear, warm, dry - Musculoskeletal Musculoskeletal: gait normal, strength equal bilaterally - Psychiatric Psychiatric: appropriate mood/affect, intact judgment & insight - Neurologic Neurologic: CNII-XII intact, moves all extremities Results - Labs CBC & Chem 7: 02/14/21 10:38 02/14/21 15:21 Labs: Abnormal lab results 02/14/21 02/15/21 Range/Units 15:21 11:05 Sodium 136 L (137-145) mmol/L Carbon Dioxide 21 L (22-30) mmol/L Glucose 140 H (65-100) mg/dL POC Glucose 137 H (70-105) mg/dL AST 358 H (5-40) units/L ALT 653 H (7-56) units/L Alkaline Phosphatase 637 H (35-129) units/L Albumin 2.8 L (3.9-5) g/dL Assessment and Plan - Patient Problems (1) Elevated LFTs Current Visit: Yes Status: Acute Plan to address problem: Recommend: Abdominal Ultrasound, hepatitis panel, consider surgery consult versus GI consult pending abdominal ultrasound results and results of repeat liver function test..
[2021-02-15 14:25] LABS: Alanine Aminotransferase 551 units/L (7-56); Albumin 3.2 g/dL (3.9-5); Blood Urea Nitrogen 7 mg/dL (7-17); Hemolysis Index 1
[2021-02-15 14:31] LABS: BUN/Creatinine Ratio 14
--- NOTE | 2021-02-15 18:07 | Ultrasound Report ---
ULTRASOUND ABDOMEN, COMPLETE INDICATION: cholestasis with LFTs. COMPARISON: No relevant prior imaging study available. FINDINGS: Pancreas: No significant abnormality. Abdominal Aorta: No significant abnormality. IVC: No significant abnormality. Liver: No significant abnormality. Normal hepatopedal blood flow in the main portal vein. Gallbladder: Cholelithiasis. Bile ducts: No significant abnormality. Common bile duct measures 2 mm. Kidneys: Right: No significant abnormality. Left: No significant abnormality. Spleen: No significant abnormality. Free fluid: None. Additional Findings: None. IMPRESSION: Cholelithiasis. Signer Name: Ron Hewitt MD Signed: 02/15/2021 6:02 PM Workstation Name: [id number]
--- NOTE | 2021-02-16 08:41 | Progress Note ---
Assessment and Plan - Patient Problems (1) state Current Visit: Yes Status: Acute Plan to address problem: --Patient meeting all goals for discharge home (2) Elevated LFTs Current Visit: Yes Status: Acute Plan to address problem: --Now downtrending. Abdominal US showing asymptomatic cholelithiasis. No acute intervention indicated. Subjective - Subjective Date of service: 02/16/21 Principal diagnosis: s/p with cholestasis Interval history: Patient without abdominal pain and known cholestasis presenting with increasing LFTs , downtrending. US showing cholelithiasis, asx. Patient meeting goals. Baby doing well. Patient reports: appetite normal, pain well controlled, flatus : doing well Objective - Vital Signs Latest vital signs: Vital Signs Temp Pulse Resp BP Pulse Ox Pulse Ox 02/16/21 00:31 18 02/15/21 23:48 98.0 F 63 16 140/85 95 02/15/21 23:31 18 02/15/21 20:00 98 02/15/21 18:20 16 02/15/21 16:50 98.0 F 65 20 126/77 94 02/15/21 09:18 16 Intake and Output 02/15/21 02/16/21 02/16/21 23:59 07:59 15:59 Intake Total 200 Balance 200 Intake: Oral 200 Other: Total, Intake Amount 200 # Voids Void 1 1 - Exam Abdomen: Present: normal appearance, soft. Absent: tenderness Uterus: Present: firm - Labs Labs: Abnormal lab results 02/15/21 02/15/21 Range/Units 11:05 13:39 Creatinine 0.5 L (0.6-1.2) mg/dL POC Glucose 137 H (70-105) mg/dL AST 249 H (5-40) units/L ALT 551 H (7-56) units/L Alkaline Phosphatase 607 H (35-129) units/L Albumin 3.2 L (3.9-5) g/dL
--- NOTE | 2021-02-16 08:42 | Discharge Summary ---
Providers - Providers Date of Admission: 02/13/21 22:19 Date of discharge: 02/16/21 Attending physician: MARISELA AMOR JR, MD 02/15/21 10:49 Consult to Physician [CONS] Routine Comment: Consulting Provider: MARY ASTORGA Physician Instructions: please evaluate Reason For Exam: s/p with cholestasis and elevated LFTs Primary care physician: MARISELA AMOR JR, MD Hospitalization Reason for admission: induction of labor (for cholestasis) Delivery: Laceration: 1st degree Discharge diagnosis: IUP at term delivered baby: male Hospital course: Patient admitted and induced for cholestasis at term. s/p uncomplicated on 02/13/21. Continued to have increasing LFTs until 02/15/21, now downtrending. Abd US showing Cholelithiasis. Given patient currently asymptomatic, no indication for acute management and patient discharged home in good condition. Condition at discharge: Good Disposition: 01 HOME / SELF CARE / HOMELESS - Discharge Diagnoses (1) state Status: Acute (2) Elevated LFTs Status: Acute Plan - Provider Discharge Summary Activity: routine Diet: routine Instructions: routine Additional instructions: [] Smoking cessation referral if applicable(refer to patient education folder for contact #) [] Refer to [facility] Booklet Call your doctor immediately for: * Fever > 100.5 * Heavy vaginal bleeding ( >1 pad per hour) * Severe persistent headache * Shortness of breath * Reddened, hot, painful area to leg or breast * Drainage or odor from incision. * Keep incision clean and dry at all times and follow doctor's instructions regarding bathing/showering - Follow up plan Follow up: PRIMARY CARE, [Referring] - 6 Weeks
[2021-02-16 09:46] VITALS: BP 123/81
[2021-02-16] MEDS: IBUPROFEN 600 MG TAB PO SCH (10:23)
[2021-02-16] MEDS: PRENATAL VIT27-FE FUMARATE-FOLIC ACID VIT TAB PO SCH (10:24)
== END 2021-02-16 16:34 | disposition home or self-care (01) | DRG 805 ==
LOC: TRG 16:18 → LD 16:26 → TRG 02-13 22:18 → LD 02-13 22:19 → OB 02-14 00:11
PROVIDERS: ADMIT Obstetrics & Gynecology; ATTEND Obstetrics & Gynecology
PROC: 10E0XZZ Delivery of Products of Conception, External Approach (ICD-10-PCS; principal; 2021-02-13)
PROC: 0HQ9XZZ Repair Perineum Skin, External Approach (ICD-10-PCS; 2021-02-13)
PROC: 3E0R3BZ Introduction of Anesthetic Agent into Spinal Canal, Percutaneous Approach (ICD-10-PCS; 2021-02-13)
PROC: 00HU33Z Insertion of Infusion Device into Spinal Canal, Percutaneous Approach (ICD-10-PCS; 2021-02-13)
DX: O69.81X0 Labor and delivery complicated by cord around neck, without compression, not applicable or unspecified (principal); K83.1 Obstruction of bile duct; Z37.0 Single live birth; O26.62 Liver and biliary tract disorders in childbirth; Z3A.38 38 weeks gestation of pregnancy; Z83.3 Family history of diabetes mellitus; Z20.822 Contact with and (suspected) exposure to COVID-19; Z82.49 Family history of ischemic heart disease and other diseases of the circulatory system; O70.0 First degree perineal laceration during delivery; O99.214 Obesity complicating childbirth
CPT/HCPCS: 36415; 59200; 76705; 80053; 82565; 82962; 83615; 84450; 84460; 84550; 85014; 85018; 85027; 86850; 86900; 86901; 99211; G0378; G0463; J2590; J7120; U0003